=== PATIENT | male | born 1960 | race Caucasian/White ===

== ENCOUNTER 2016-06-25 12:26 | Outpatient (CLI) | payer BC ==
[~2016-06-25] VITALS: Ht 170.2 cm; Wt 81.6 kg
--- OUTSIDE RECORDS SUMMARY | 2016-06-25 12:28 | XMS REPORT | Continuity of Care Document ---
Author Author [facility] Organization [facility] Address Unknown Phone Unavailable Care Team Providers Care Felt Puller Name Role Phone Kalyan Joaquin PCP [phone] Source Comments Some departments are not documenting in the electronic medical record. If you do not see the information that you expected, contact Release of Information in the Health Information Management department at [phone] for further assistance in locating additional records.[facility] Active Allergies and Adverse Reactions No Known Allergies Current Medications Prescription Sig. Disp. Refills Start End Date Status Date amLODIPine/benazepril(+) Take by mouth daily. Active (LOTREL) 10/20 mg tablet nebivolol (BYSTOLIC) 5 mg Take 5 mg by mouth daily. Active tablet citalopram (CELEXA) 40 mg Take 40 mg by mouth Active tablet daily. clorazepate (TRANXENE) 15 Take 15 mg by mouth twice Active mg tablet daily. simvastatin (ZOCOR) 20 mg Take 20 mg by mouth at Active tablet bedtime daily. hydrochlorothiazide Take 12.5 mg by mouth Active (HYDRODIURIL) 12.5 mg tab daily. tablet traMADol (ULTRAM) 50 mg Take 50 mg by mouth every Active tablet 6 hours as needed for Pain. aspirin 81 mg chewable Take 81 mg by mouth Active tablet daily. 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 Social History Tobacco Use Types Packs/Day Years Used Date Never Smoker Smokeless Tobacco: Never Used Tobacco Cessation: Counseling Given: Yes Comments: Alcohol Use Drinks/Week oz/Week Comments Yes 0 Standard 0.0 drinks or equivalent Last Filed Vital Signs Vital Sign Reading Time Taken Blood Pressure 113/76 01/13/2015 9:04 AM CDT Pulse 48 01/13/2015 9:04 AM CDT Temperature 36.5 C (97.7 F) 12/21/2014 10:08 AM CDT Respiratory Rate - - Height 1.702 m (5' 7") 01/13/2015 9:04 AM CDT Weight 83.008 kg (183 lb) 01/13/2015 9:04 AM CDT Body Mass Index 28.66 01/13/2015 9:04 AM CDT Oxygen Saturation 97% 12/21/2014 9:54 PM CDT Plan of Care Health Maintenance Due Date Last Done Comments Physical (Comprehensive) 08/29/1967 Exam Pertussis Vaccine 08/29/1971 Tetanus Vaccine 1977 Colorectal Cancer 2010 Screening Influenza Vaccine 02/16/2016 Results from Last 3 Months Not on file
[2016-06-25] MEDS ORDERED: BUPIVACAINE 0.5% 30 ML (SENSORCAINE) VIAL ONE (12:35)
[2016-06-25] MEDS ORDERED: TRIAMCINOLONE ACET (KENALOG-40) 40 MG/ML 1 ML VIAL ONE (12:35)
[2016-06-25] MEDS ORDERED: LIDOCAINE 1% INJ 20 ML (XYLOCAINE) VIAL ONE (12:35)
[2016-06-25 12:51] VITALS: BP 140/93
[2016-06-25 13:53] VITALS: BP 137/98
--- NOTE | 2016-06-25 14:42 | Pain Medicine-Procedure ---
Procedure Pre-Op/Post-Op Diagnosis Diagnosis: spondylosis without myelopathy, lumbar Indications for Operation Low back pain Attending Surgeon Margareth Procedure Date of Service: Jun 25, 2016 PROCEDURE: Bilateral lumbar medial branch block at L3,L4, L5 and sacral ala under fluoroscopic guidance. PROCEDURE DETAILS: After obtaining an informed consent from the patient, the patient's chart was reviewed. The patient was brought to the procedure room and placed in a prone position. The back was prepped with antiseptic solution, and under fluoroscopic guidance the sacral ala was identified bilaterally. 0.5 cc of 1% Lidocaine to anesthetize the skin. Two 22 gauge 3.5 inch spinal needles were inserted under fluoroscopic guidance until it got in touch with the bone at the sacral ala bilaterally. Then under right oblique fluoroscopy, the junction of the superior articular process and transverse process on the right at L3, L4, and L5 was identified. 0.5 cc of 1% Lidocaine was used to anesthetize the skin. A 22 gauge 3.5 inch spinal needle was inserted through the skin under fluoroscopic guidance until it came in touch with the bone at the junction between the superior articular process and transverse process at each level. The exact steps were repeated for the left side. After needle aspiration,80 mg of kenalog total was injected in equal alliquots followed by 0.5 cc of 0.5% bupivacaine at each. The patient tolerated the procedure well. The needles were flushed and removed, and a Band-Aide was applied. Complications None BRYANT BAUTISTA MD Jun 25, 2016 2:42 pm
== END 2016-06-25 13:54 | disposition home or self-care (01) ==
LOC: CARD 12:26
PROVIDERS: ATTEND Pain Medicine Pain Medicine
DX: M47.816 Spondylosis without myelopathy or radiculopathy, lumbar region (principal); M51.16 Intervertebral disc disorders with radiculopathy, lumbar region; Z79.899 Other long term (current) drug therapy
CPT/HCPCS: 64493; 64494; 64495